=== PATIENT | female | born 1990 | race Caucasian/White ===

== ENCOUNTER 2017-10-18 12:20 | Emergency (ER) | payer OTHER ==
--- NOTE | 2017-10-18 12:57 | Emergency Department Report ---
Chief Complaint: Vaginal Bleeding Stated Complaint: VAGINAL BLEEDING Time Seen by Provider: 10/18/17 12:53 - HPI History of Present Illness: Patient reports that she is having vaginal bleeding and passing some clots. She says she was told to apply for Medicaid. She has no care. She says she has one positive home test. She is also complaining of vaginal discharge. She said vaginal bleeding that has been worsening over the last couple days. She is having abdominal cramping to her pelvic area 3-10. Denies any fever or chills. Denies any urinary burning frequency or urgency. She says she just thinks she is about 2 months her last menstrual cycle was 08/18/2017. She just traveled from [place]. Patient has no chest pain or shortness of breath. History of miscarriage 2 with 2 vaginal delivery. Denies any medical problem. Denies any swelling to legs. Denies any history of blood clots. - ROS Review of Systems: All systems are negative unless stated in HPI above. - Exam Vital Signs: Vital Signs 10/18/17 12:29 Temperature 98.2 F Pulse Rate 84 Respiratory 20 Rate Blood Pressure 95/60 O2 Sat by Pulse 99 Oximetry Physical Exam: Gen.: This is 27-year-old female well-nourished well-developed in no acute distress. She is nontoxic in appearance. Abdomen: Nontender to palpate in all quadrants. No guarding or rebound tenderness. No CVA tenderness CV: S1-S2, regular rhythm negative murmur blood pressure is 95/60 and patient is asymptomatic. MSE screening note: Focused history and physical exam performed. Due to findings the following was ordered: ED Medical Decision Making - Medical Decision Making MDM: Patient screened by provider in triage area. Appropriate protocol initiated and patient to be seen in main ED by ED Disposition for MSE Condition: Stable
[2017-10-18 13:41] LABS: Basophils % (Auto) 0.8 % (0.0-1.8); Hematocrit 38.8 % (30.3-42.9); Hemoglobin 13.5 gm/dl (10.1-14.3); Mean Corpuscular HGB Conc 35 % (30-34); Mean Corpuscular Hemoglobin 31 pg (28-32); Mean Corpuscular Volume 90 fl (79-97); Platelet Count 217 K/mm3 (140-440); Red Cell Distribution Width 12.9 % (13.2-15.2); White Blood Count 8.5 K/mm3 (4.5-11.0)
[2017-10-18 13:53] LABS: Anion Gap 20 mmol/L; BUN/Creatinine Ratio 30; Blood Urea Nitrogen 9 mg/dL (7-17); Calcium 9.4 mg/dL (8.4-10.2); Carbon Dioxide 21 mmol/L (22-30); Glucose 85 mg/dL (65-100); Potassium 3.9 mmol/L (3.6-5.0); Sodium 136 mmol/L (137-145)
[2017-10-18 14:27] LABS: Bilirubin,Urine NEG (Negative); Blood,Urine LG (Negative); Ketones,Urine NEG (Negative); Leukocyte Esterase,Urine TR (Negative); Mucus,Urine FEW /HPF; Nitrite,Urine NEG (Negative); Protein,Urine <15 mg/dL mg/dL (Negative); Urobilinogen,Urine < 2.0 mg/dL (<2.0)
[2017-10-18 14:31] LABS: RBC,Urine > 182.0 /HPF (0.0-6.0)
--- NOTE | 2017-10-18 16:18 | Ultrasound Report ---
FINAL REPORT EXAM: US OB TRANSVAGINAL HISTORY: ?2 mos with vaginal bleeding TECHNIQUE: Grayscale and color doppler ultrasound imaging of the pelvis was performed transvaginally. PRIORS: None. FINDINGS: Uterus: A small fibroid is seen in the posterior aspect of the uterus measuring 1.0 x 0.7 x 0.7 centimeters. No intrauterine was seen. No ectopic was identified. Endometrium: The endometrium is normal in echogenicity. The endometrium measures 11 millimeters. Ovaries: A simple right ovarian cyst is seen measuring 2.8 x 2.4 x 2.1 centimeters. No left ovarian cysts. Normal flow is seen to the ovaries. The right ovary measures 4.4 x 4.9 x 3.1 centimeters. The left ovary measures 3.1 x 2.1 centimeters. Free fluid: None. IMPRESSION: 1. Small uterine fibroid. 2. 2.8 centimeter simple appearing right ovarian cyst is likely benign. 3. Normal left ovary.
--- NOTE | 2017-10-18 16:45 | Ultrasound Report ---
FINAL REPORT EXAM: US OB < = 14 WEEKS FETUS HISTORY: ?2 mos with vaginal bleeding TECHNIQUE: Ultrasound obstetrical transabdominal and transvaginal PRIORS: None. FINDINGS: The uterus measures 9.2 x 5.4 x 6.0 centimeters. Endometrial stripe is 1.1 centimeters in thickness At the posterior body of the uterus there is mixed echogenicity focus largely hypoechoic measuring approximately 2.6 centimeters in transverse diameter most consistent with a fibroid There is no evidence for gestational sac within the uterus. Right ovary is 4.9 x 3.1 x 4.4 centimeters. 2.8 centimeter right ovarian cyst is identified Left ovary is 3.0 x 2.0 x 1.7 centimeters. Normal sonographic appearance No free fluid identified within the cul-de-sac IMPRESSION: No intrauterine gestation identified at this time a. May reflect very early gestation and continued followup recommended Uterine fibroid Right ovarian cyst noted 2.8 centimeters
--- NOTE | 2017-10-19 02:55 | Emergency Department Report ---
ED Female HPI - General Chief complaint: Vaginal Bleeding Stated complaint: VAGINAL BLEEDING Time Seen by Provider: 10/18/17 12:53 Source: patient, RN notes reviewed Mode of arrival: Ambulatory Limitations: No Limitations - History of Present Illness Initial comments: This is a 27-year-old female, the patient is previously on known to this provider, patient reports that she is 5, para 2, last menstrual period is August 18. Patient presents to the ER today with crampy vaginal bleeding. An going on for approximately 24 hours. Patient denies nausea, vomiting, diarrhea, irritated, obstructive urinary symptoms. Patient reports using 5 pads in the past 24 hours , and reports passing profuse clots earlier on today. Reports feeling generally weak from not eating. MD Complaint: vaginal bleeding -: Gradual Location: suprapubic Radiation: non-radiating Severity: mild Quality: cramping Consistency: intermittent Improves with: none Worsens with: none Are you Now?: Yes Associated Symptoms: vaginal discharge, vaginal bleeding, abdominal pain, weakness. denies: nausea/vomiting, fever/chills, headaches, loss of appetite, dysuria, hematuria, shortness of breath, syncope - Related Data Sexually active: Yes Previous Rx's Medication Instructions Recorded Last Taken Type Doxycycline [Vibramycin CAP] 100 mg PO Q12HR #14 capsule 12/17/15 Unknown Rx Ibuprofen [Motrin] 800 mg PO Q8HR PRN #30 tablet 12/17/15 Unknown Rx Methylergonovine [Methergine] 0.2 mg PO Q8HR #6 tablet 12/17/15 Unknown Rx Allergies Allergy/AdvReac Type Severity Reaction Status Date / Time No Known Allergies Allergy Verified 12/17/15 07:30 ED Review of Systems ROS: Stated complaint: VAGINAL BLEEDING Other details as noted in HPI ED Past Medical Hx - Past Medical History Previous Medical History?: Yes Hx Hypertension: No Hx Congestive Heart Failure: No Hx Diabetes: No Hx Deep Vein Thrombosis: No Hx Renal Disease: No Hx Sickle Cell Disease: No Hx Seizures: No Hx Asthma: No Hx COPD: No Additional medical history: Vaginal delivery x 2, Miscarriage x 2 - Surgical History Past Surgical History?: Yes Additional Surgical History: D&C - Social History Smoking Status: Never Smoker Substance Use Type: Prescribed - Medications Home Medications: Home Medications Medication Instructions Recorded Confirmed Last Taken Type Doxycycline [Vibramycin CAP] 100 mg PO Q12HR #14 capsule 12/17/15 Unknown Rx Ibuprofen [Motrin] 800 mg PO Q8HR PRN #30 tablet 12/17/15 Unknown Rx Methylergonovine [Methergine] 0.2 mg PO Q8HR #6 tablet 12/17/15 Unknown Rx ED Physical Exam - General Limitations: No Limitations General appearance: alert, in no apparent distress - Head Head exam: Present: atraumatic, normocephalic - Eye Eye exam: Present: normal appearance, EOMI - ENT ENT exam: Present: normal exam, normal orophraynx, mucous membranes moist, normal external ear exam - Neck Neck exam: Present: normal inspection, full ROM - Respiratory Respiratory exam: Present: normal lung sounds bilaterally. Absent: respiratory distress, chest wall tenderness - Cardiovascular Cardiovascular Exam: Present: regular rate, normal rhythm, normal heart sounds. Absent: systolic murmur, diastolic murmur, rubs, gallop - GI/Abdominal GI/Abdominal exam: Present: soft, normal bowel sounds. Absent: distended, tenderness, guarding, rebound, rigid, pulsatile mass - External exam: Present: normal external exam Speculum exam: Present: normal speculum exam, vaginal bleeding Bi-manual exam: Present: normal bi-manual exam, other (escorted by nurse ZAYRA SO). Absent: cervical motion tendernes, adnexal tenderness, adnexal mass - Extremities Exam Extremities exam: Present: normal inspection, full ROM, normal capillary refill. Absent: pedal edema, joint swelling, calf tenderness - Back Exam Back exam: Present: normal inspection, full ROM. Absent: tenderness, CVA tenderness (R), CVA tenderness (L), muscle spasm, paraspinal tenderness, vertebral tenderness - Neurological Exam Neurological exam: Present: alert, oriented X3, CN II-XII intact, normal gait, other (Extraocular movements intact. Tongue midline. No facial droop. Facial sensation intact to light touch in the V1, V2, V3 distribution bilaterally. 5 and 5 strength in 4 extremities.. Sensation is intact to light touch in 4 extremities.). Absent: motor sensory deficit - Psychiatric Psychiatric exam: Present: normal affect, normal mood - Skin Skin exam: Present: warm, dry, intact, normal color. Absent: rash ED Course Vital Signs 10/18/17 10/18/17 10/19/17 12:29 22:49 02:48 Temperature 98.2 F 98.6 F Pulse Rate 84 82 Respiratory 20 14 Rate Blood Pressure 95/60 96/51 99/36 Blood Pressure [Left] O2 Sat by Pulse 99 99 Oximetry 10/19/17 10/19/17 10/19/17 03:00 03:05 03:27 Temperature Pulse Rate Respiratory 16 Rate Blood Pressure 81/40 101/62 Blood Pressure [Left] O2 Sat by Pulse 99 Oximetry 10/19/17 10/19/17 10/19/17 03:30 03:36 03:45 Temperature Pulse Rate Respiratory Rate Blood Pressure 81/49 97/57 79/43 Blood Pressure [Left] O2 Sat by Pulse Oximetry 10/19/17 04:19 Temperature Pulse Rate Respiratory Rate Blood Pressure Blood Pressure 98/62 [Left] O2 Sat by Pulse Oximetry ED Medical Decision Making - Lab Data Result diagrams: 10/18/17 13:02 10/18/17 13:02 Vital Signs 10/18/17 10/18/17 10/19/17 12:29 22:49 02:48 Temperature 98.2 F 98.6 F Pulse Rate 84 82 Respiratory 20 14 Rate Blood Pressure 95/60 96/51 99/36 Blood Pressure [Left] O2 Sat by Pulse 99 99 Oximetry 10/19/17 10/19/17 10/19/17 03:00 03:05 03:27 Temperature Pulse Rate Respiratory 16 Rate Blood Pressure 81/40 101/62 Blood Pressure [Left] O2 Sat by Pulse 99 Oximetry 10/19/17 10/19/17 10/19/17 03:30 03:36 03:45 Temperature Pulse Rate Respiratory Rate Blood Pressure 81/49 97/57 79/43 Blood Pressure [Left] O2 Sat by Pulse Oximetry 10/19/17 04:19 Temperature Pulse Rate Respiratory Rate Blood Pressure Blood Pressure 98/62 [Left] O2 Sat by Pulse Oximetry Lab Results 10/18/17 10/18/17 10/18/17 Range/Units 13:02 13:02 13:02 WBC 8.5 (4.5-11.0) K/mm3 RBC 4.30 (3.65-5.03) M/mm3 Hgb 13.5 (10.1-14.3) gm/dl Hct 38.8 (30.3-42.9) % MCV 90 (79-97) fl MCH 31 (28-32) pg MCHC 35 H (30-34) % RDW 12.9 L (13.2-15.2) % Plt Count 217 (140-440) K/mm3 Lymph % (Auto) 30.0 (13.4-35.0) % Morton % (Auto) 7.9 H (0.0-7.3) % Eos % (Auto) 2.0 (0.0-4.3) % Baso % (Auto) 0.8 (0.0-1.8) % Lymph # 2.6 (1.2-5.4) K/mm3 Morton # 0.7 (0.0-0.8) K/mm3 Eos # 0.2 (0.0-0.4) K/mm3 Baso # 0.1 (0.0-0.1) K/mm3 Seg Neutrophils % 59.3 (40.0-70.0) % Seg Neutrophils # 5.1 (1.8-7.7) K/mm3 Sodium (137-145) mmol/L Potassium (3.6-5.0) mmol/L Chloride (98-107) mmol/L Carbon Dioxide (22-30) mmol/L Anion Gap mmol/L BUN (7-17) mg/dL Creatinine (0.7-1.2) mg/dL Estimated GFR ml/min BUN/Creatinine Ratio % Glucose (65-100) mg/dL Calcium (8.4-10.2) mg/dL HCG, Quant 4791 H (0-4) mIU/mL Urine Color (Yellow) Urine Turbidity (Clear) Urine pH (5.0-7.0) Ur Specific [place] (1.003-1.030) Urine Protein (Negative) mg/dL Urine Glucose (UA) (Negative) mg/dL Urine Ketones (Negative) mg/dL Urine Blood (Negative) Urine Nitrite (Negative) Urine Bilirubin (Negative) Urine Urobilinogen (<2.0) mg/dL Ur Leukocyte Esterase (Negative) Urine WBC (Auto) (0.0-6.0) /HPF Urine RBC (Auto) (0.0-6.0) /HPF U Epithel Cells (Auto) (0-13.0) /HPF Urine Mucus /HPF Blood Type O POSITIVE Antibody Screen Negative 10/18/17 10/18/17 Range/Units 13:02 13:49 WBC (4.5-11.0) K/mm3 RBC (3.65-5.03) M/mm3 Hgb (10.1-14.3) gm/dl Hct (30.3-42.9) % MCV (79-97) fl MCH (28-32) pg MCHC (30-34) % RDW (13.2-15.2) % Plt Count (140-440) K/mm3 Lymph % (Auto) (13.4-35.0) % Morton % (Auto) (0.0-7.3) % Eos % (Auto) (0.0-4.3) % Baso % (Auto) (0.0-1.8) % Lymph # (1.2-5.4) K/mm3 Morton # (0.0-0.8) K/mm3 Eos # (0.0-0.4) K/mm3 Baso # (0.0-0.1) K/mm3 Seg Neutrophils % (40.0-70.0) % Seg Neutrophils # (1.8-7.7) K/mm3 Sodium 136 L (137-145) mmol/L Potassium 3.9 (3.6-5.0) mmol/L Chloride 99.0 (98-107) mmol/L Carbon Dioxide 21 L (22-30) mmol/L Anion Gap 20 mmol/L BUN 9 (7-17) mg/dL Creatinine 0.3 L (0.7-1.2) mg/dL Estimated GFR > 60 ml/min BUN/Creatinine Ratio 30 % Glucose 85 (65-100) mg/dL Calcium 9.4 (8.4-10.2) mg/dL HCG, Quant (0-4) mIU/mL Urine Color Yellow (Yellow) Urine Turbidity Clear (Clear) Urine pH 5.0 (5.0-7.0) Ur Specific [place] 1.019 (1.003-1.030) Urine Protein <15 mg/dl (Negative) mg/dL Urine Glucose (UA) Neg (Negative) mg/dL Urine Ketones Neg (Negative) mg/dL Urine Blood Lg (Negative) Urine Nitrite Neg (Negative) Urine Bilirubin Neg (Negative) Urine Urobilinogen < 2.0 (<2.0) mg/dL Ur Leukocyte Esterase Tr (Negative) Urine WBC (Auto) 3.0 (0.0-6.0) /HPF Urine RBC (Auto) > 182.0 (0.0-6.0) /HPF U Epithel Cells (Auto) 3.0 (0-13.0) /HPF Urine Mucus Few /HPF Blood Type Antibody Screen - Radiology Data Radiology results: report reviewed, image reviewed Obstetric social sounds, read by radiology: No intrauterine is noted. Small fibroids noted, normal left ovary, simple appearing right ovarian cyst noted, likely benign, flow noted to the bilateral ovaries - Medical Decision Making Differential diagnosis, including but not limited to: Ectopic , complete miscarriage, threatened miscarriage Assessment and plan: 27-year-old female with vaginal bleeding, positive quantitative hCG, miscarriage 2, D&C, quantitative hCG of 3000 with no obvious intrauterine noted. There is no abdominal tenderness, rebound or guarding. Patient relatively hypotensive, however she is very short and diminutive in stature, and has been in the ER for 14 hours without decompensation. Most likely this blood pressure is appropriate for this patient and this is probably where she lives. Patient tolerated liquid feeds without difficulty, and she is instructed to return in 48 hours for repeat physical exam and quantitative hCG, patient most likely had a complete miscarriage. She will be discharged at this time, return precautions are reviewed, at her request, I have ordered a case management/ social worker clinical consult to facilitate patient being started on emergency Medicaid, patient provided a phone number that she can be contacted at. Critical care attestation.: If time is entered above; I have spent that time in minutes in the direct care of this critically ill patient, excluding procedure time. ED Disposition Clinical Impression: Miscarriage Disposition: DC-01 TO HOME OR SELFCARE Is pt being admited?: No Does the pt Need Aspirin: No Condition: Stable Instructions: Spontaneous Miscarriage (ED) Additional Instructions: Cultures were sent today, results will be available in the next 3-5 days. Have a primary care doctor or geospatial systems integrator contact the medical records department to obtain culture results. Rest and avoid heavy lifting and avoid strenuous physical activity, do not have sex until cleared by a geospatial systems integrator or primary care doctor. Follow-up in 2 days/48 hours for repeat physical exam and quantitative hCG. Most likely, patient has had a complete miscarriage. However, it is possible, although unlikely, that the patient has a outside the uterus; ectopic . Therefore, it is very important for the patient to follow-up in 2 days for repeat ultrasound and blood tests. Patient can follow up with any of the listed gynecology specialist, or patient can return to this ER for follow-up. Return to the ER right away with new pain, worsening pain, migration of pain, bleeding more than 2 pads soaked per hour, lightheadedness, loss of consciousness, chest pain, shortness of breath, projectile vomiting, change in mental status. Referrals: PRIMARY CARE, [Primary Care Provider] - 3-5 Days [facility] [Provider Group] - 3-5 Days [facility] [Provider Group] - 3-5 Days [facility] [Provider Group] - 3-5 Days
[2017-10-19] MEDS ORDERED: TYLENOL PO ONE (03:09)
[2017-10-19 04:20] VITALS: BP 98/62
== END 2017-10-19 04:35 | disposition home or self-care (01) ==
LOC: ED 12:20
DX: O03.9 Complete or unspecified spontaneous abortion without complication (principal)
CPT/HCPCS: 36415; 76801; 76817; 80048; 81001; 84702; 85025; 86850; 86900; 86901; 87210; 87591

== ENCOUNTER 2018-06-27 12:06 | Emergency (ER) | payer MEDICAID ==
[2018-06-27 12:34] VITALS: BP 99/55
[2018-06-27 13:01] LABS: Basophils # (Auto) 0.1 K/mm3 (0.0-0.1); Basophils % (Auto) 0.7 % (0.0-1.8); Eosinophils # (Auto) 0.8 K/mm3 (0.0-0.4); Eosinophils % (Auto) 6.9 % (0.0-4.3); Hematocrit 31.8 % (30.3-42.9); Hemoglobin 11.2 gm/dl (10.1-14.3); Lymphocytes % (Auto) 17.4 % (13.4-35.0); Mean Corpuscular HGB Conc 35 % (30-34); Mean Corpuscular Hemoglobin 32 pg (28-32); Mean Corpuscular Volume 91 fl (79-97); Monocytes # (Auto) 0.7 K/mm3 (0.0-0.8); Monocytes % (Auto) 6.2 % (0.0-7.3); Platelet Count 181 K/mm3 (140-440); Red Blood Count 3.49 M/mm3 (3.65-5.03); Red Cell Distribution Width 13.8 % (13.2-15.2)
--- NOTE | 2018-06-27 15:58 | Ultrasound Report ---
FINAL REPORT PROCEDURE: US OB > = 14 WEEKS FETUS TECHNIQUE: Real-time transabdominal sonography of the uterus, placenta, amniotic fluid, adnexa, and fetus was performed with image documentation. Detailed anatomic examination was performed. Measurements were obtained to determine age/size. M-mode Doppler was used to document heartbeat. CPT 73728 HISTORY: bleeding, cramping, COMPARISON: No prior studies are available for comparison. FINDINGS: Single living intrauterine gestation currently visualize variable presentation with a heart rate of 135 beats per minute. Amount of amniotic fluid appears normal. Placenta is located anterior grade 0. No evidence of placenta abruption. Cervix length 5.4 centimeters. On the images provided I am unable to clearly visualize the internal cervical os. The appearance suggest placenta previa. Lateral ventricles of the brain, thalamus, posterior fossa and cavum septum pellucidum are unremarkable. Visualization of the cervical and thoracic spine are unremarkable. The lower lumbar spine is suboptimally seen on sagittal views. Bladder and stomach were visualized. Three-vessel cord is confirmed with visualization of 2 arcuate arteries. Kidneys are unremarkable. Cord insertion showed no abnormality. Four-chamber view of the heart is unremarkable. Facial features were not demonstrated. Extremities were not studied in detail. Diaphragm was not clearly visualized. MEASUREMENTS: BPD: 4.4 centimeter equals 19 week 2 days HC: 15.9 centimeter, 18 week 5 days AC: 13.3 centimeter equal 18 week 5 days FL: 2.7 centimeter quit 18 week 2 days Estimated weight 248 grams. IMPRESSION: Single living intrauterine gestation visualized currently in variable presentation. By average sonographic measurements estimated age is 18 weeks 5 days placing EDC 11/23/2018 +/-1.5 weeks. Findings suspicious for placenta previa. No placental abruption visualized. Amount of amniotic fluid appeared normal. No abnormalities are seen however facial features the diaphragm and lumbar spine were not clearly visualized.
--- NOTE | 2018-06-27 16:29 | Emergency Department Report ---
ED Abdominal Pain HPI - General Chief Complaint: Vaginal Bleeding Stated Complaint: ABD PAIN Time Seen by Provider: 06/27/18 16:05 Source: patient Mode of arrival: Ambulatory Limitations: No Limitations - History of Present Illness Initial Comments: This is 28-year-old female complaining of intermittent abdominal pain that started last night. She stated she had some spotting last night but it stopped. Denies any clots. Patient reports that she is [address] Edwin Mcgregor at [facility]. She said she had ultrasound done and everything was fine. Pain is crampy to left lower abdomen and it comes and goes. Pain is 6 out of 10. Denies any urinary burning, frequency or urgency. Denies any nausea vomiting or fever or chills. Denies an back pain or vaginal discharge. She says she has had STD check with her needle checked and everything was normal. MD Complaint: abdominal pain -: Last night Location: suprapubic Radiation: none Migration to: no migration Severity: moderate Severity scale (0 -10): 6 Quality: cramping Consistency: intermittent Improves With: nothing Worsens With: nothing Context: other ( and concerned in that) Associated Symptoms: denies: nausea, vomiting, diarrhea, fever, chills, constipation, dysuria, hematemesis, hematochezia, melena, hematuria, anorexia, syncope Treatments Prior to Arrival: other ( no medication prior to coming to the emergency room) - Related Data LMP (females 10-50): Previous Rx's Medication Instructions Recorded Last Taken Type Doxycycline [Vibramycin CAP] 100 mg PO Q12HR #14 capsule 12/17/15 Unknown Rx Ibuprofen [Motrin] 800 mg PO Q8HR PRN #30 tablet 12/17/15 Unknown Rx Methylergonovine [Methergine] 0.2 mg PO Q8HR #6 tablet 12/17/15 Unknown Rx cephALEXin [Keflex] 500 mg PO Q12H 7 Days #14 cap 06/27/18 Unknown Rx Allergies Allergy/AdvReac Type Severity Reaction Status Date / Time No Known Allergies Allergy Verified 06/27/18 12:32 ED Review of Systems ROS: Stated complaint: ABD PAIN Other details as noted in HPI Constitutional: denies: chills, fever Eyes: denies: eye discharge ENT: denies: ear pain, throat pain, congestion Respiratory: denies: cough, shortness of breath, SOB with exertion, SOB at rest , stridor, wheezing Cardiovascular: denies: chest pain, palpitations, edema, syncope Gastrointestinal: abdominal pain. denies: nausea, diarrhea Genitourinary: other (reports spotting yesterday but none today). denies: urgency, dysuria, frequency, hematuria, discharge, abnormal menses Musculoskeletal: denies: back pain, joint swelling, arthralgia, myalgia Skin: denies: rash, lesions Neurological: paresthesias. denies: headache, weakness, vertigo ED Past Medical Hx - Past Medical History Previous Medical History?: No Hx Hypertension: No Hx Congestive Heart Failure: No Hx Diabetes: No Hx Deep Vein Thrombosis: No Hx Renal Disease: No Hx Sickle Cell Disease: No Hx Seizures: No Hx Asthma: No Hx COPD: No Additional medical history: Vaginal delivery x 2, Miscarriage x 2 - Surgical History Past Surgical History?: Yes Additional Surgical History: D&C - Family History Family history: hypertension - Social History Smoking Status: Never Smoker Substance Use Type: None - Medications Home Medications: Home Medications Medication Instructions Recorded Confirmed Last Taken Type Doxycycline [Vibramycin CAP] 100 mg PO Q12HR #14 capsule 12/17/15 Unknown Rx Ibuprofen [Motrin] 800 mg PO Q8HR PRN #30 tablet 12/17/15 Unknown Rx Methylergonovine [Methergine] 0.2 mg PO Q8HR #6 tablet 12/17/15 Unknown Rx cephALEXin [Keflex] 500 mg PO Q12H 7 Days #14 cap 06/27/18 Unknown Rx ED Physical Exam - General Limitations: No Limitations General appearance: alert, in no apparent distress - Head Head exam: Present: atraumatic, normocephalic, normal inspection - Eye Eye exam: Present: normal appearance, PERRL, EOMI Pupils: Present: normal accommodation - ENT ENT exam: Present: normal exam, normal orophraynx, mucous membranes moist - Neck Neck exam: Present: normal inspection, full ROM. Absent: tenderness, lymphadenopathy - Respiratory Respiratory exam: Present: normal lung sounds bilaterally. Absent: respiratory distress, chest wall tenderness - Cardiovascular Cardiovascular Exam: Present: regular rate, normal rhythm, normal heart sounds. Absent: systolic murmur, diastolic murmur - GI/Abdominal GI/Abdominal exam: Present: soft, normal bowel sounds. Absent: distended, tenderness, guarding, rebound, rigid, organomegaly, mass - Extremities Exam Extremities exam: Present: normal inspection, full ROM, normal capillary refill , other (No cce. + 2 pulses in all extremities, no neurovascular compromise). Absent: tenderness, pedal edema, joint swelling, calf tenderness - Back Exam Back exam: Present: normal inspection, full ROM, other (ambulates without any difficulties). Absent: tenderness, CVA tenderness (R), CVA tenderness (L), rash noted - Neurological Exam Neurological exam: Present: alert, oriented X3, normal gait, reflexes normal. Absent: motor sensory deficit - Psychiatric Psychiatric exam: Present: normal affect, normal mood - Skin Skin exam: Present: warm, dry, intact, normal color. Absent: rash ED Course Vital Signs 06/27/18 06/27/18 12:32 17:14 Temperature 98.7 F Pulse Rate 16 L 92 H Respiratory 16 Rate Blood Pressure 99/55 O2 Sat by Pulse 98 Oximetry - Reevaluation(s) Reevaluation #1: 06/27/18 16:59 Patient stable throughout ED course. Her ultrasound reports shows placenta previa but no placental abruption. I spoke with patient about this and I also spoke Dr. Colon regarding ultrasound findings. I attempted to call Dr. Chloe Mcgregor as patient goes to [facility] for care but Dr. Lopez is on-call and she will call back when she comes out of surgery. I wanted to have the ultrasound findings. She has no episode of vaginal bleeding in emergency room and minimal abdominal pain Reevaluation #2: 06/27/18 18:45 I spoke with the patient via phone after I spoke with Dr. Lopez and I informed patient that she needs to refrain from putting anything in her vagina and still directed by her IMAGING SCIENCE PROFESSOR I told her in her discharge instruction paperwork not to have any sexual activity until directed by IMAGING SCIENCE PROFESSOR so I further told her not to insert her finger, any sex toys, oral sex or any objects of any kind whether organic , inorganic and/or tangible in her vaginal vault. Patient was understood by standing after explained to her in detail. ED Medical Decision Making - Lab Data Result diagrams: 06/27/18 12:43 Lab Results 06/27/18 06/27/18 06/27/18 Range/Units 12:43 12:43 12:43 WBC 11.2 H (4.5-11.0) K/mm3 RBC 3.49 L (3.65-5.03) M/mm3 Hgb 11.2 (10.1-14.3) gm/dl Hct 31.8 (30.3-42.9) % MCV 91 (79-97) fl MCH 32 (28-32) pg MCHC 35 H (30-34) % RDW 13.8 (13.2-15.2) % Plt Count 181 (140-440) K/mm3 Lymph % (Auto) 17.4 (13.4-35.0) % [place] % (Auto) 6.2 (0.0-7.3) % Eos % (Auto) 6.9 H (0.0-4.3) % Baso % (Auto) 0.7 (0.0-1.8) % Lymph # 2.0 (1.2-5.4) K/mm3 [place] # 0.7 (0.0-0.8) K/mm3 Eos # 0.8 H (0.0-0.4) K/mm3 Baso # 0.1 (0.0-0.1) K/mm3 Seg Neutrophils % 68.8 (40.0-70.0) % Seg Neutrophils # 7.7 (1.8-7.7) K/mm3 HCG, Qual Positive (Negative) HCG, Quant 18056 H (0-4) mIU/mL Urine Color (Yellow) Urine Turbidity (Clear) Urine pH (5.0-7.0) Ur Specific [place] (1.003-1.030) Urine Protein (Negative) mg/dL Urine Glucose (UA) (Negative) mg/dL Urine Ketones (Negative) mg/dL Urine Blood (Negative) Urine Nitrite (Negative) Urine Bilirubin (Negative) Urine Urobilinogen (<2.0) mg/dL Ur Leukocyte Esterase (Negative) Urine WBC (Auto) (0.0-6.0) /HPF Urine RBC (Auto) (0.0-6.0) /HPF U Epithel Cells (Auto) (0-13.0) /HPF Urine Mucus /HPF Blood Type Antibody Screen 06/27/18 06/27/18 Range/Units 12:43 Unknown WBC (4.5-11.0) K/mm3 RBC (3.65-5.03) M/mm3 Hgb (10.1-14.3) gm/dl Hct (30.3-42.9) % MCV (79-97) fl MCH (28-32) pg MCHC (30-34) % RDW (13.2-15.2) % Plt Count (140-440) K/mm3 Lymph % (Auto) (13.4-35.0) % [place] % (Auto) (0.0-7.3) % Eos % (Auto) (0.0-4.3) % Baso % (Auto) (0.0-1.8) % Lymph # (1.2-5.4) K/mm3 [place] # (0.0-0.8) K/mm3 Eos # (0.0-0.4) K/mm3 Baso # (0.0-0.1) K/mm3 Seg Neutrophils % (40.0-70.0) % Seg Neutrophils # (1.8-7.7) K/mm3 HCG, Qual (Negative) HCG, Quant (0-4) mIU/mL Urine Color Yellow (Yellow) Urine Turbidity Slightly-cloudy (Clear) Urine pH 6.0 (5.0-7.0) Ur Specific [place] 1.018 (1.003-1.030) Urine Protein <15 mg/dl (Negative) mg/dL Urine Glucose (UA) Neg (Negative) mg/dL Urine Ketones Neg (Negative) mg/dL Urine Blood Neg (Negative) Urine Nitrite Neg (Negative) Urine Bilirubin Neg (Negative) Urine Urobilinogen < 2.0 (<2.0) mg/dL Ur Leukocyte Esterase Sm (Negative) Urine WBC (Auto) 2.0 (0.0-6.0) /HPF Urine RBC (Auto) 1.0 (0.0-6.0) /HPF U Epithel Cells (Auto) 2.0 (0-13.0) /HPF Urine Mucus Few /HPF Blood Type O POSITIVE Antibody Screen Negative Urine culture pending - Radiology Data Radiology results: report reviewed Patient had ultrasound greater than 14 weeks transabdominal which was dictated by radiologist and report reviewed by myself. Please see report below. Patient: RADHA FERNANDEZ MR#: [id number] : 1990 Acct:[id number] Age/Sex: 28 / F ADM Date: 06/27/18 Loc: ED Attending Dr: Ordering Physician: KATELYN HERNANDEZ MD Date of Service: 06/27/18 Procedure(s): US OB >= 14 weeks Fetus Accession Number(s): [id number] cc: KATELYN HERNANDEZ MD FINAL REPORT PROCEDURE: US OB gt; = 14 WEEKS FETUS TECHNIQUE: Real-time transabdominal sonography of the uterus, placenta, amniotic fluid, adnexa, and fetus was performed with image documentation. Detailed anatomic examination was performed. Measurements were obtained to determine age/size. M-mode Doppler was used to document heartbeat. CPT 93472 HISTORY: bleeding, cramping, COMPARISON: No prior studies are available for comparison. FINDINGS: Single living intrauterine gestation currently visualize variable presentation with a heart rate of 135 beats per minute. Amount of amniotic fluid appears normal. Placenta is located anterior grade 0. No evidence of placenta abruption. Cervix length 5.4 centimeters. On the images provided I am unable to clearly visualize the internal cervical os. The appearance suggest placenta previa. Lateral ventricles of the brain, thalamus, posterior fossa and cavum septum pellucidum are unremarkable. Visualization of the cervical and thoracic spine are unremarkable. The lower lumbar spine is suboptimally seen on sagittal views. Bladder and stomach were visualized. Three-vessel cord is confirmed with visualization of 2 arcuate arteries. Kidneys are unremarkable. Cord insertion showed no abnormality. Four-chamber view of the heart is unremarkable. Facial features were not demonstrated. Extremities were not studied in detail. Diaphragm was not clearly visualized. MEASUREMENTS: BPD: 4.4 centimeter equals 19 week 2 days HC: 15.9 centimeter, 18 week 5 days AC: 13.3 centimeter equal 18 week 5 days FL: 2.7 centimeter quit 18 week 2 days Estimated weight 248 grams. IMPRESSION: Single living intrauterine gestation visualized currently in variable presentation. By average sonographic measurements estimated age is 18 weeks 5 days placing EDC 11/23/2018 +/-1.5 weeks. Findings suspicious for placenta previa. No placental abruption visualized. Amount of amniotic fluid appeared normal. No abnormalities are seen however facial features the diaphragm and lumbar spine were not clearly visualized. Transcribed By: REYNA Dictated By: GERALDO REDD MD Electronically Authenticated By: GERALDO REDD MD Signed Date/Time: 06/27/181556 DD/ 56 TD/TT: 06/27/181556 - Medical Decision Making This is a 28-year-old female who is here due to lower abdominal pain and reported that she is [address] Chloe Mcgregor at [facility]. She had one episode of spotting without any clots last night but none since. Patient says she is here to be examined. Patient was screened by Dr. Colon and order placed. Patient physical exam is normal. Abdomen exam is normal, back exam is normal. She has no vaginal bleeding at present. CBC stable with mild elevation in white count, urinalysis with trace leukocyte esterase and slightly cloudy otherwise normal findings. Patient states quantitative hCG correlates with her gestational age. Patient transabdominal ultrasound greater than 14 weeks which shows a viable intrauterine with heart beat at 155. Positive placenta previa without any abruption. Patient has no episode of bleeding currently and she is not having any abdominal pain at present. I spoke with Dr. Luke Colon regarding patient's ultrasound results and he is okay with patient being discharged home to follow-up with her hydraulic rockbreaker operator tomorrow. I attempted to call Dr. Mcgregor but he is not special education professional to let him know ultrasound findings and I also attempted to let the on-call doctor who is Dr. Lopez no regarding patient's ultrasound finding but she is in surgery. I discussed the patient that she needs to follow-up with Dr. Mcgregor or the doctor did some call tomorrow but if she developed increasing abdominal pain increases and bleeding in or if bleeding return to return to the emergency room RANDA and she voiced understanding. Patient blood type is O+ antibody screen negative so she does not need RhoGAM. I discussed results of CT scan and lab work with patient and she voiced understanding. Patient discharged home with prescription for Keflex to treat small bladder infection and she voiced understanding. Vital signs are stable and she is afebrile and nontoxic in appearance. Critical care attestation.: If time is entered above; I have spent that time in minutes in the direct care of this critically ill patient, excluding procedure time. ED Disposition Clinical Impression: Threatened in second trimester, Placenta previa antepartum in second trimester, Abdominal pain during intrauterine UTI (urinary tract infection) during Qualifiers: Trimester: second trimester Qualified Code(s): O23.42 - Unspecified infection of urinary tract in , second trimester Disposition: DC-01 TO HOME OR SELFCARE Is pt being admited?: No Does the pt Need Aspirin: No Condition: Stable Instructions: Threatened Miscarriage (ED), Placenta Previa (ED), Urinary Tract Infection in Women (ED), Abdominal Pain in (ED) Additional Instructions: Please follow up with outside Medical Center IMAGING SCIENCE PROFESSOR tomorrow If you have return of vaginal bleeding and/or increased abdominal pain please return to the emergency room RANDA Rest for 72 hours without doing any strenuous activity to include sexual activity and waited until you are cleared by your IMAGING SCIENCE PROFESSOR to resume sexual activity Increase her fluid intake Take Keflex for a urinary tract infection Prescriptions: cephALEXin [Keflex] 500 mg PO Q12H 7 Days #14 cap Referrals: EDWIN MCGREGOR MD [Staff Physician] - 06/28/18 Forms: Work/School Release Form(ED)
[2018-06-27 16:43] LABS: Bilirubin,Urine NEG (Negative); Blood,Urine NEG (Negative); Color,Urine Yellow (Yellow); Mucus,Urine FEW /HPF; Protein,Urine <15 mg/dL mg/dL (Negative); Urobilinogen,Urine < 2.0 mg/dL (<2.0)
== END 2018-06-27 17:24 | disposition home or self-care (01) ==
LOC: ED 12:06
DX: O20.0 Threatened abortion (principal); O23.41 Unspecified infection of urinary tract in pregnancy, first trimester; Z3A.12 12 weeks gestation of pregnancy
CPT/HCPCS: 36415; 76805; 81001; 84702; 84703; 85025; 86850; 86900; 86901; 87086

== ENCOUNTER 2018-11-29 10:05 | Inpatient (IN) | payer MEDICAID ==
[2018-11-29] MEDS ORDERED: LACTATED RINGERS 1,000 ML ONE (10:26)
[2018-11-29] MEDS: LACTATED RINGERS 1,000 ML IV SCH ×2 (11:40→15:42)
[2018-11-29] MEDS ORDERED: BRETHINE SUB-Q PRN (12:03)
[2018-11-29] MEDS ORDERED: ZOFRAN IV PRN (12:03)
[2018-11-29] MEDS ORDERED: XYLOCAINE 2% INFILTRATI ONE (12:03)
[2018-11-29] MEDS ORDERED: STADOL IV PRN (12:03)
[2018-11-29] MEDS ORDERED: NARCAN 0.4 MG/1 ML IV PRN (12:03)
[2018-11-29] MEDS ORDERED: MINERAL OIL PO PRN (12:03)
[2018-11-29] MEDS ORDERED: BRETHINE IVP PRN (12:03)
--- NOTE | 2018-11-29 12:13 | History and Physical Report ---
History of Present Illness Date of examination: 11/29/18 Date of admission: 11/29/18 10:05 Chief complaint: My water broke at 06:30 this morning. The fluid was clear. 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 Pallidum is Non-reactive; 2nd trimester complicated by a UTI, treated in the ER. Co-managed with [facility] at 23 02/27 to rule out Placenta Previa; No previa appreciated. 3rd trimester complicated by Anemia, taking FeSO4. 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 History: syphilis (Reactive RPR) Family/Genetic History: none Social history: no significant social history, - Obstetrical History Expected Date of Delivery: 11/23/18 Actual Gestation: 40 Week(s) 6 Day(s) : 6 Para: 2 Hx # Term Pregnancies: 2 Spontaneous Abortions: 3 Number of Living Children: 2 #1 Infant Gender: Male year: 2,010 Birthweight: 3.26 kg Method of Delivery: Vaginal Gestational age at delivery: 40 Complications: none #2 Infant Gender: Female year: 2,014 Birthweight: 3.203 kg Method of Delivery: Vaginal Gestational age at delivery: 39 Complications: none Medications and Allergies Allergies Allergy/AdvReac Type Severity Reaction Status Date / Time No Known Allergies Allergy Verified 06/27/18 12:32 Home Medications Medication Instructions Recorded Confirmed Last Taken Type Doxycycline [Vibramycin CAP] 100 mg PO Q12HR #14 capsule 12/17/15 Unknown Rx Ibuprofen [Motrin] 800 mg PO Q8HR PRN #30 tablet 12/17/15 Unknown Rx Methylergonovine [Methergine] 0.2 mg PO Q8HR #6 tablet 12/17/15 Unknown Rx cephALEXin [Keflex] 500 mg PO Q12H 7 Days #14 cap 06/27/18 Unknown Rx Active Meds: Active Medications Butorphanol Tartrate (Stadol) 2 mg IV Q2H PRN PRN Reason: Pain , Severe (7-10) Ephedrine Sulfate (Ephedrine Sulfate) 10 mg IV Q2M PRN PRN Reason: Hypotension Lactated Ringer's (Lactated Ringers) 1,000 mls @ 125 mls/hr IV DIRECT DIXIE Oxytocin/Sodium Chloride (Pitocin/Ns 20 Unit/1000ml Drip) 20 units in 1,000 mls @ 125 mls/hr IV DIRECT DIXIE Oxytocin/Sodium Chloride (Pitocin/Ns 30 Unit/500ml) 30 units in 500 mls @ 4 mls/hr IV TITR DIXIE; Protocol Lidocaine (Xylocaine 2%) 20 ml INFILTRATI ONCE ONE Stop: 11/29/18 12:04 Mineral Oil (Mineral Oil) 30 ml PO QHS PRN PRN Reason: Constipation Naloxone HCl (Narcan 0.4 Mg/1 Ml) 0.1 mg IV Q2MIN PRN PRN Reason: Res Rate </= 8 or 02 SAT < 92% Ondansetron HCl (Zofran) 4 mg IV Q8H PRN PRN Reason: Nausea And Vomiting Terbutaline Sulfate (Brethine) 0.25 mg SUB-Q ONCE PRN PRN Reason: Hyperstimulation/Hypertonicity Terbutaline Sulfate (Brethine) 0.25 mg IVP ONCE PRN PRN Reason: Hyperstimulation/Hypertonicity Review of Systems All systems: negative - Vital Signs Vital signs: Vital Signs Pulse BP 72 119/73 11/29/18 10:59 11/29/18 10:59 Temp Pulse Resp BP Pulse Ox 72 119/73 11/29/18 10:59 11/29/18 10:59 - Physical Exam Breasts: Positive: normal Cardiovascular: Regular rate Lungs: Positive: Clear to auscultation, Normal air movement Abdomen: Positive: normal appearance, soft, normal bowel sounds Genitourinary (Female): Positive: normal external genitalia, normal perenium Uterus: Positive: enlarged Anus/Rectum: Positive: normal perianal skin - Obstetrical FHR: category 1 Uterine Contraction Monitor Mode: External Cervical Dilatation: 4 (leaking a scant amount of clear fluid) Cervical Effacement Percentage: 60 station: -2 Uterine Contraction Pattern: Irregular Uterine Tone Measurement Phase: Resting Uterine Contraction Intensity: Moderate Results All other labs normal. Assessment and Plan A: IUP @ 40 6/7 Weeks Category I Tracing SROM GBS Negative P: Admit to L&D per Routine Orders Pitocin Augmentation
[2018-11-29] MEDS: PITOCin/NS 30 UNIT/500ML 30 UNITS/500 ML BAG IV SCH ×2 (12:15→13:07)
[2018-11-29 12:25] LABS: Hematocrit 34.4 % (30.3-42.9); Hemoglobin 11.5 gm/dl (10.1-14.3); Mean Corpuscular HGB Conc 34 % (30-34); Mean Corpuscular Volume 88 fl (79-97); Platelet Count 141 K/mm3 (140-440); Red Cell Distribution Width 14.7 % (13.2-15.2)
[2018-11-29] MEDS ORDERED: PITOCin/NS 20 UNIT/1000ML DRIP 20 UNITS/1,000 ML BAG IV SCH (13:00)
[2018-11-29] MEDS ORDERED: CYTOTEC ONE (15:42)
[2018-11-29] MEDS ORDERED: METHERGINE IM ONE ×2 (15:42→17:00)
[2018-11-29] MEDS ORDERED: DULCOLAX PR PRN (16:11)
[2018-11-29] MEDS ORDERED: BENADRYL PO PRN (16:11)
--- NOTE | 2018-11-29 16:24 | Procedure Note ---
OB Delivery Note - Delivery Date of Delivery: 11/29/18 (1532) Surgeon: IWONA RICKS Estimated blood loss: other (600) - Vaginal Delivery presentation: vertex Delivery position: OA Intrapartum events: hemorrhage Delivery induction: none Delivery augmentation: pitocin Delivery monitor: external FHT, external uterine Route of delivery: Delivery placenta: spontaneous Delivery cord: nuchal cord, 3 umbilical vessels Episiotomy: none Delivery laceration: none Anesthesia: none Delivery comments: of a live 8'4 female infant over a intact perineum under IV pain control with Apgars of 8 and 9 at 1532 on 11/29/2018. Nuchal cord x 1 easily manually reduced on the perineum prior to delivery of the anterior shoulder. directly to maternal abd/chest, skin to skin contact. Spontaneous delivery of placenta complete and intact with [place] side presenting at 1541. Delayed cord clamping and cutting; Cord cut by RANI Ricks. Large gushes of uterine bleeding observed after placental delivery. 800mcg of Cytotec placed per rectum. Methergine 0.2mg given IM. Uterus began to firm with bi-manual massage. Bladder emptied with a in and out catheter. About 500cc of clear urine voided. External uterine massage continued. Uterine became firm and midline located 4 below the U. Lochia became scant. IV access loss during 2nd stage. IV re-started; 20U of Pitocin in bag ran wide open. Cord blood collected; Placenta discarded. Vital signs are stable. Mother and baby in LDR both in stable condition. - Infant A at 1 minute: 8 at 5 minutes: 9 Infant Gender: Female (8'4)
[2018-11-29] MEDS ORDERED: SODIUM CHLORIDE FLUSH SYRINGE 10 ML IV SCH (17:00)
[2018-11-29] MEDS ORDERED: CYTOTEC PR ONE (17:10)
[2018-11-29] MEDS: IBUPROFEN PO SCH (17:16)
[2018-11-29] MEDS: NORCO 5/325 PO PRN (17:17)
[2018-11-30 05:09] LABS: Hematocrit 28.5 % (30.3-42.9); Hemoglobin 9.7 gm/dl (10.1-14.3)
--- NOTE | 2018-11-30 11:17 | Progress Note ---
Assessment and Plan A: PPD#1 s/p Stable P: Routine PP orders Undecided on contraception Anticipate discharge home 12/01/18 Subjective - Subjective Date of service: 11/30/18 Principal diagnosis: PPD#1 s/p Interval history: See H&P and delivery note Patient reports: appetite normal, voiding normally, pain well controlled, flatus, ambulating normally [place]: doing well, nursing well Objective - Vital Signs Latest vital signs: Vital Signs Temp Pulse Resp BP BP Pulse Ox 11/30/18 08:10 98.2 F 80 20 99/62 11/30/18 01:05 98.5 F 74 18 105/65 11/29/18 20:18 98.6 F 75 16 110/62 11/29/18 18:25 99 F 79 20 109/61 95 11/29/18 17:46 87 125/70 11/29/18 17:31 77 110/55 11/29/18 17:16 79 112/58 11/29/18 17:01 81 111/59 11/29/18 16:46 83 107/58 11/29/18 16:31 77 109/59 11/29/18 16:16 73 109/61 11/29/18 16:01 78 114/66 Intake and Output 11/29/18 11/30/18 11/30/18 23:59 07:59 15:59 Intake Total 360 120 240 Output Total 1200 800 Balance -840 -680 240 Intake: Oral 240 Intake, Free Water 360 120 Output: Urine 1200 800 Void 1200 800 Other: Total, Intake Amount 240 Total, Output Amount 800 800 - Exam Breasts: Present: normal, Cardiovascular: Present: Regular rate, Normal S1, Normal S2, No murmurs Lungs: Present: Clear to auscultation, Normal air movement Abdomen: Present: normal appearance, soft, normal bowel sounds. Absent: distention Vulva: both: normal Uterus: Present: firm, fundal height below umbilicus (-2) Extremities: Present: normal Deep Tendon Reflex Grade: Normal +2 - Labs Labs: Abnormal lab results 11/30/18 Range/Units 04:44 Hgb 9.7 L (10.1-14.3) gm/dl Hct 28.5 L (30.3-42.9) %
--- NOTE | 2018-11-30 11:19 | Discharge Summary ---
Providers - Providers Date of Admission: 11/29/18 10:05 Date of discharge: 12/01/18 Attending physician: MY LÓPEZ Primary care physician: MY LÓPEZ Hospitalization Reason for admission: active labor, IUP at term Delivery: Procedure details: see delivery note Episiotomy: none Laceration: none Other procedures: none complications: none Discharge diagnosis: IUP at term delivered baby: female Condition at discharge: Good Disposition: DC-01 TO HOME OR SELFCARE Plan - Provider Discharge Summary Activity: routine, no sex for 6 weeks, no heavy lifting 4 weeks, no strenuous exercise Diet: routine Instructions: routine Additional instructions: [] Smoking cessation referral if applicable(refer to patient education folder for contact #) [] Refer to [facility]'s [facility] Booklet Call your doctor immediately for: * Fever > 100.5 * Heavy vaginal bleeding ( >1 pad per hour) * Severe persistent headache * Shortness of breath * Reddened, hot, painful area to leg or breast * Drainage or odor from incision. * Keep incision clean and dry at all times and follow doctor's instructions regarding bathing/showering - Follow up plan Follow up: MY LÓPEZ MD [Primary Care Provider] - 6 Weeks
[2018-11-30] MEDS ORDERED: AFLURIA QUAD 2018-2019 SYRINGE IM ONE (12:00)
[2018-11-30] MEDS: FEOSOL PO SCH ×2 (12:02→20:24)
[2018-11-30] MEDS: IBUPROFEN PO SCH ×3 (12:02→20:24)
[2018-11-30] MEDS: NORCO 5/325 PO PRN ×2 (12:02→23:20)
[2018-12-01] MEDS: IBUPROFEN PO SCH ×3 (01:21→13:06)
[2018-12-01] MEDS ORDERED: BOOSTRIX IM ONE (06:00)
[2018-12-01] MEDS ORDERED: AFLURIA QUAD 2018-2019 SYRINGE IM ONE (12:00)
[2018-12-01 12:29] VITALS: BP 103/53
[2018-12-01] MEDS: FEOSOL PO SCH (13:05)
[2018-12-01] MEDS: NORCO 5/325 PO PRN (13:06)
== END 2018-12-01 13:30 | disposition home or self-care (01) | DRG 774 ==
LOC: LD 10:05 → OB 18:41
PROVIDERS: ADMIT Obstetrics & Gynecology; ATTEND Obstetrics & Gynecology
PROC: 10E0XZZ Delivery of Products of Conception, External Approach (ICD-10-PCS; principal; 2018-11-29)
PROC: 3E0234Z Introduction of Serum, Toxoid and Vaccine into Muscle, Percutaneous Approach (ICD-10-PCS; 2018-12-01)
DX: O69.81X0 Labor and delivery complicated by cord around neck, without compression, not applicable or unspecified (principal); O72.1 Other immediate postpartum hemorrhage; Z3A.40 40 weeks gestation of pregnancy; Z37.0 Single live birth; Z23 Encounter for immunization; O99.02 Anemia complicating childbirth; D64.9 Anemia, unspecified
CPT/HCPCS: 36415; 85014; 85018; 85027; 86592; 86850; 86900; 86901; 90471; 90686; 90715; 96360; 96374; G0378; J0595; J2210; J2590; J7120